=== PATIENT | male | born 1965 | race African-American/Black ===

== ENCOUNTER 2018-06-24 09:46 | Emergency (ER) | payer MEDICARE, MEDICAID ==
[2018-06-24 09:52] VITALS: BP 134/93
--- NOTE | 2018-06-24 09:56 | ER Document Report ---
HPI - HPI Pain Level: 5 Notes: Patient is a 52-year-old male who presents with chief complaint of low back pain. Patient reports the pain has been ongoing for 3 days and radiates down to the anterior portion of his right leg. Patient denies any recent injury. Patient does state that he was hanging some drywall recently and he thinks that this aggravated the area. Patient reports past medical history of hypertension , states he takes HCTZ. Patient denies any episodes of incontinence, saddle anesthesia, and denies any fevers. - REPRODUCTIVE Reproductive: DENIES: : Past Medical History - General Information source: Patient - Social History Smoking Status: Never Smoker Drug Abuse: None Lives with: Alone Family History: None - Past Medical History Cardiac Medical History: Reports: Hx Hypercholesterolemia, Hx Hypertension Pulmonary Medical History: Denies: Hx Tuberculosis Neurological Medical History: Reports: Hx Cerebrovascular Accident - Immunizations Hx Diphtheria, Pertussis, Tetanus Vaccination: Yes Vertical Provider Document - CONSTITUTIONAL Notes: PHYSICAL EXAMINATION: GENERAL: Well-appearing, well-nourished and in no acute distress. HEAD: Atraumatic, normocephalic. EYES: Pupils equal round extraocular movements intact, conjunctiva are normal. ENT: Nares patent NECK: Normal range of motion LUNGS: No respiratory distress Musculoskeletal: Normal range of motion, tenderness to palpation to the paraspinous muscles near the right lumbar area, negative straight leg raises. NEUROLOGICAL: Normal speech, normal gait. PSYCH: Normal mood, normal affect. SKIN: Warm, Dry, normal turgor, no rashes or lesions noted. - INFECTION CONTROL TRAVEL OUTSIDE OF THE [place] IN LAST 30 DAYS: No Course - Re-evaluation Re-evalutation: examination consistent with musculoskeletal strain. Patient will be discharged home in stable condition at this time. Patient instructed to return to the emergency department for any worsening of his pain, loss of bowel or bladder or numbness or tingling to either of his extremities. - Vital Signs Vital signs: Temp Pulse Resp BP Pulse Ox 98.0 F 73 18 134/93 H 99 06/24/18 09:49 06/24/18 09:49 10 09:49 06/24/18 09:49 06/24/18 09:49 Discharge - Discharge Clinical Impression: Back pain Qualifiers: Back pain location: low back pain Chronicity: acute Back pain laterality: right Sciatica presence: with sciatica Sciatica laterality: sciatica of right side Qualified Code(s): M54.41 - Lumbago with sciatica, right side Condition: Stable Disposition: HOME, SELF-CARE Additional Instructions: LOW BACK PAIN: Three out of every four people will have an episode of disabling back pain during their lifetime. Most commonly the pain is due to straining of the muscles and ligaments in the low back. Usual treatment includes: (1) Rest on a firm surface. Avoid lying on your stomach. (2) Ice pack the painful area. After a few days, gentle heat may be used intermittently to relax the area, or ice packs can be continued. (3) Medication may be needed -- muscle relaxers and antiinflammatory medicines are commonly used. (4) As the back improves, exercises are prescribed to strengthen the back and abdominal muscles. Your doctor will advise you on the proper care for your back at each stage in your recovery. You may be better in a few days -- or healing may take several weeks. If new symptoms of a "herniated disc" (radiation of pain, numbness, or tingling down the back of the leg or weakness in the leg) occur, you should be re-examined. Further testing may be necessary. PAIN MEDICATION INJECTION: You have received an injection of a pain medication. You should experience significant pain relief within 45 minutes. If this injection was a narcotic -- it will impair your judgement, slow your reaction time and make you sleepy (as well as relieve your pain). Narcotics also can cause nausea. You should not drive, work with machinery, or perform any task requiring mental alertness until all effects of the medication are gone -- six to eight hours. Do not take any alcohol, or sedatives, and do not take any other medication without checking with your physician. ICE PACKS: Apply ice packs frequently against the painful area. Many different schedules are recommended, such as "20 minutes on, 20 minutes off" or "one hour ice, two hours rest." If you need to work, you may need to go longer between ice treatments. You should plan to have the area ice packed AT LEAST one fourth of the time. The ice should be applied over the wrap, tape, or splint, or over a layer of cloth -- not directly against the skin. Some ice bags have a built-in cloth and can be put directly on the skin. WARM PACKS: After approximately two days, apply gentle heat (such as a heating pad or hot water bottle) for about 20 to 30 minutes about every two hours -- at least four times daily. Warmth and elevation will help you make a more rapid recovery , and will ease the pain considerably. Do not use HOT heat, and never apply heat for longer than 30 minutes. The continuous heat can invisibly damage skin and muscles -- even when no burn is seen on the surface. Damaged muscles can make you MORE sore. FOLLOW-UP CARE: If you have been referred to a physician for follow-up care, call the physician s office for an appointment as you were instructed or within the next two days. If you experience worsening or a significant change in your symptoms, notify the physician immediately or return to the Emergency Department at any time for re-evaluation. Please take medication as prescribed. Alternate ice and heat to the area. Follow-up with your primary care provider in the next 3-5 days for a follow-up.* Prescriptions: Ibuprofen 600 mg PO Q6H #40 tablet Lidocaine [Lidoderm 5% (700 mg) Transdermal Patch] 1 patch TP DAILY #30 adh..patch Referrals: TALHA JOHNSON MD [ACTIVE STAFF] - Follow up as needed
[2018-06-24] MEDS ORDERED: DEXAMETHASONE SOD PHOS INJ 10 MG/1 ML VIAL IM ONE (10:01)
[2018-06-24] MEDS ORDERED: KETOROLAC TROMETHAMINE 60 MG/2 ML SDV IM ONE (10:01)
[2018-06-24] MEDS ORDERED: LIDOCAINE 5% (700 MG) TRANSDERMAL ADH..PATCH TP ONE (10:02)
== END 2018-06-24 10:34 | disposition home or self-care (01) ==
LOC: ER 09:46
DX: M54.41 Lumbago with sciatica, right side (principal); E78.00 Pure hypercholesterolemia, unspecified; I10 Essential (primary) hypertension; Z86.73 Personal history of transient ischemic attack (TIA), and cerebral infarction without residual deficits
CPT/HCPCS: 99283; 96372; J1885; J1100

== ENCOUNTER 2019-03-13 13:34 | Emergency (ER) | payer MEDICARE, MEDICAID ==
--- NOTE | 2019-03-13 15:36 | ER Document Report ---
HPI - HPI Time Seen by Provider: 03/13/19 15:07 Pain Level: 3 Notes: 53-year-old male presents to the ED for evaluation of a rash that he had approximately 2 weeks ago was seen by urgent care approximately 2 weeks ago, told that he did have shingles and at the same time he also told him that he picked off a tick from his groin area. Patient states that now where the rash was, he noticed a burning sensation. Has not been followed up by his primary provider who is Nannette Ponce NP, at [facility] in [facility]. Denies any new medications foods or travel. Pt is unable to say if he was treated for Lyme disease or not. its patient states the burning pain has been becoming progressively worse in the last 2 weeks. Eating and drinking without issues. Denies fevers, chills, chest pain,palpitations, shortness of breath, dyspnea, nausea, vomiting, diarrhea, abdominal pain, hematuria,blurred vision, double vision, loss of vision, speech changes, LH, dizziness, syncope, headaches, wheezing, ST, URI, neck pain, weakness, bowel or bladder dysfunction, saddle anesthesia, numbness or tingling in bilateral upper or lower extremities equally, muscle paralysis, weakness in bilateral upper or lower extremities equally. Denies IV drug use. - REPRODUCTIVE Reproductive: DENIES: : Past Medical History - General Information source: Patient - Social History Smoking Status: Current Every Day Smoker Frequency of alcohol use: Occasional Drug Abuse: Marijuana Family History: None Patient has suicidal ideation: No Patient has homicidal ideation: No - Past Medical History Cardiac Medical History: Reports: Hx Hypercholesterolemia, Hx Hypertension Pulmonary Medical History: Denies: Hx Tuberculosis Neurological Medical History: Reports: Hx Cerebrovascular Accident Renal/ Medical History: Denies: Hx Peritoneal Dialysis - Immunizations Hx Diphtheria, Pertussis, Tetanus Vaccination: Yes Vertical Provider Document - CONSTITUTIONAL Agree With Documented VS: Yes Notes: PHYSICAL EXAMINATION: GENERAL: Well-appearing, well-nourished and in no acute distress. HEAD: Atraumatic, normocephalic. EYES: Pupils equal round and reactive to light, extraocular movements intact, sclera anicteric, conjunctiva are normal. ENT: Nares patent, oropharynx clear without exudates. Moist mucous membranes. NECK: Normal range of motion, supple without lymphadenopathy LUNGS: Breath sounds clear to auscultation bilaterally and equal. No wheezes rales or rhonchi. HEART: Regular rate and rhythm without murmurs ABDOMEN: Soft, nontender, nondistended abdomen. No guarding, no rebound. No masses appreciated. Musculoskeletal: Normal range of motion, no pitting or edema. No cyanosis. NEUROLOGICAL: Cranial nerves grossly intact. Normal speech, normal gait. Normal sensory, motor exams PSYCH: Normal mood, normal affect. SKIN: Warm, Dry, normal turgor, no rashes or lesions noted. Right lower torso with a healed's partially scalloped rash along the dermatome that does not cross midline without any erythema induration or warmth to touch, no open wounds. - INFECTION CONTROL TRAVEL OUTSIDE OF THE [place] IN LAST 30 DAYS: No Course - Re-evaluation Re-evalutation: 03/13/19 16:28 53-year-old male afebrile vitals stable no distress presents for evaluation of rash, discussed with patient since he was diagnosed with shingles, he has postherpetic neuralgia which is a common effect from having shingles. Needs to discuss with provider on starting gabapentin, will start on lidocaine patches, will check Lyme titer due to patient being concerned about being bitten by tick approximately 2 weeks ago and took the tick off from his groin area while the urgent care. Results need to be followed up with patient as well as primary care provider. Discussed with patient extensively how herpes zoster is a viral condition that does live in the dermatomes and the nerves are inflamed. Patient needs to follow-up with primary care provider within the next 24 hours to start on gabapentin due to it being a titrating dose and may need to be on for a 3 to 6 months. After performing a Medical Screening Examination, I estimate there is LOW risk for OPEN FRACTURE, COMPARTMENT SYNDROME, TENDON RUPTURE, ACUTE NEUROVASCULAR INJURY, or RETAINED FOREIGN BODY, thus I consider the discharge disposition reasonable. Also, there is no evidence or peritonitis, sepsis, or toxicity. I have reevaluated this patient multiple times and no significant life threatening changes are noted. The patient and I have discussed the diagnosis and risks, and we agree with discharging home with close follow-up with the understanding that symptoms and presentations can change. We also discussed returning to the Emergency Department immediately if new or worsening symptoms occur. We have discussed the symptoms which are most concerning (e.g., changing or worsening pain, fever, numbness, weakness, cool or painful digits) that necessitate immediate return. - Vital Signs Vital signs: Temp Pulse Resp BP Pulse Ox 98.4 F 89 16 134/97 H 97 03/13/19 13:59 03/13/19 13:59 03/13/19 13:59 03/13/19 13:59 03/13/19 13:59 Discharge - Discharge Clinical Impression: Post herpetic neuralgia, exposure to tick bite Condition: Stable Disposition: HOME, SELF-CARE Instructions: Neuralgia ([facility]) Additional Instructions: We will check a Lyme titer, will call you with results as well as your primary care provider. Please call if you do not hear any results within 2 weeks. If you test positive for Lyme we will be started on a course of doxycycline and following up with your primary care provider apply lidocaine patches to area of neuralgia, follow-up with primary care provider may possibly need to start on gabapentin. Return immediately for any new or worsening symptoms. Follow up with primary care provider, call tomorrow to make followup appointment. Prescriptions: Lidocaine/Menthol [Lidall 4%-1% Patch] 1 each TP TIDP PRN #20 adh..patch PRN Reason: Referrals: NANNETTE MACHADO NP [NO LOCAL MD] - Follow up tomorrow
[2019-03-13 15:58] VITALS: BP 134/96
[2019-03-16 07:21] LABS: LYME DISEASE IGM AB <0.80 index (0.00-0.79)
== END 2019-03-13 15:50 | disposition home or self-care (01) ==
LOC: ER 13:34
DX: B02.29 Other postherpetic nervous system involvement (principal); R21 Rash and other nonspecific skin eruption; W57.XXXA Bitten or stung by nonvenomous insect and other nonvenomous arthropods, initial encounter; F17.200 Nicotine dependence, unspecified, uncomplicated; I10 Essential (primary) hypertension
CPT/HCPCS: 36415; 86617; 86618; 99283

== ENCOUNTER 2019-04-20 12:28 | Observation (INO) | payer MEDICARE, MEDICAID ==
--- NOTE | 2019-04-20 12:40 | ER Document Report ---
Addendum entered and electronically signed by BRADLEY FRANCISCO NP 04/20/19 13:08: Course - Re-evaluation Re-evalutation: 04/20/19 13:00 Dr. Murcia advised of patient presentation and location given concern about acute CVA. - Vital Signs Vital signs: Temp Pulse Resp BP Pulse Ox 91 17 152/108 H 99 04/20/19 12:44 04/20/19 12:44 04/20/19 12:44 04/20/19 12:44 - Laboratory Result Diagrams: 04/20/19 12:59 04/20/19 12:59 Original Note: ED Medical Screen (RME) - General Chief Complaint: S/S of Possible Stroke Stated Complaint: POSSIBLE STROKE Time Seen by Provider: 04/20/19 12:34 Mode of Arrival: Ambulatory Information source: Patient Notes: Patient presents complaining of left arm numbness and difficulty talking that started at 9 AM today. Patient with left-sided facial drooping. Patient does have a previous history of CVA and does take aspirin. I have greeted and performed a rapid initial assessment of this patient. A comprehensive ED assessment and evaluation of the patient, analysis of test results and completion of the medical decision making process will be conducted by additional ED providers. TRAVEL OUTSIDE OF THE [place] IN LAST 30 DAYS: No - Related Data Allergies/Adverse Reactions: No Known Allergies Allergy (Verified 03/13/19 13:46) Past Medical History - Past Medical History Cardiac Medical History: Reports: Hx Hypercholesterolemia, Hx Hypertension Pulmonary Medical History: Denies: Hx Tuberculosis Neurological Medical History: Reports: Hx Cerebrovascular Accident Renal/ Medical History: Denies: Hx Peritoneal Dialysis - Immunizations Hx Diphtheria, Pertussis, Tetanus Vaccination: Yes Physical Exam - General General appearance: Alert Notes: Left facial droop, left upper extremity weakness, slurred speech. RN taking patient directly to CT head scan. Course - Re-evaluation Re-evalutation: 04/20/19 12:39 Dr. Garcia advised of patient's presentation to ER, patient currently in CT we will go to bed to after CT.
--- NOTE | 2019-04-20 12:56 | RADIOLOGY REPORT (SQ) ---
EXAM DESCRIPTION: CT HEAD WITHOUT COMPLETED DATE/TIME: 04/20/2019 12:43 pm REASON FOR STUDY: facial droop, LUE weak COMPARISON: 06/18/2013 TECHNIQUE: Axial images acquired through the brain without intravenous contrast. Images reviewed wi th bone, brain and subdural windows. Additional sagittal and coronal reconstructions were generated. Images stored on PACS. All CT scanners at this facility use dose modulation, iterative reconstruction, and/or weight based d osing when appropriate to reduce radiation dose to as low as reasonably achievable (ALARA). [facility]: Dose Right [facility]: CareDose [facility]: Dose Right [facility]: Teradose 4D [facility]: Smart MDCapsule RADIATION DOSE: CT Rad equipment meets quality standard of care and radiation dose reduction techniq ues were employed. CTDIvol: 53.2 mGy. DLP: 1044 mGy-cm. mGy. LIMITATIONS: None. FINDINGS: VENTRICLES: Normal size and contour. Incidental note of cavum septum pellucidum et vergae variant. CEREBRUM: No masses. No hemorrhage. No midline shift. No evidence for acute infarction. Periventri cular white matter hypodensity and multiple small bilateral lacunar infarctions of the basal ganglia, unchanged from prior CT dated 06/18/2013. CEREBELLUM: No masses. No hemorrhage. No alteration of density. No evidence for acute infarction. EXTRAAXIAL SPACES: No fluid collections. No masses. ORBITS AND GLOBE: No intra- or extraconal masses. Normal contour of globe without masses. CALVARIUM: No fracture. PARANASAL SINUSES: No fluid or mucosal thickening. SOFT TISSUES: No mass or hematoma. OTHER: No other significant finding. IMPRESSION: 1. No CT evidence of acute stroke or hemorrhage. 2. Small vessel white matter disease and multiple small bilateral lacunar infarctions of the basal g anglia, unchanged from prior CT dated 06/18/2013. EVIDENCE OF ACUTE STROKE: NO. Findings reported to the emergency department by [facility] critical findings reporting system at the time of dictation. COMMENT: Quality ID # [id number]: Final reports with documentation of one or more dose reduction techniques (e.g., Automated exposure control, adjustment of the mA and/or kV according to patient size, use of iterative reconstruction technique) TECHNICAL DOCUMENTATION: JOB ID: [id number] [employer]- All Rights Reserved Reading location - IP/workstation name: [email or web address]
--- NOTE | 2019-04-20 12:59 | RADIOLOGY REPORT (SQ) ---
EXAM DESCRIPTION: CHEST SINGLE VIEW COMPLETED DATE/TIME: 04/20/2019 12:46 pm REASON FOR STUDY: facial droop, LUE weak COMPARISON: 12/14/2012 EXAM PARAMETERS: NUMBER OF VIEWS: One view. TECHNIQUE: Single frontal radiographic view of the chest acquired. RADIATION DOSE: NA LIMITATIONS: None. FINDINGS: LUNGS AND PLEURA: No opacities, masses or pneumothorax. No pleural effusion. MEDIASTINUM AND HILAR STRUCTURES: No masses. Contour normal. HEART AND VASCULAR STRUCTURES: Heart normal in size. Normal vasculature. BONES: No acute findings. HARDWARE: None in the chest. OTHER: No other significant finding. IMPRESSION: NO ACUTE RADIOGRAPHIC FINDING IN THE CHEST. TECHNICAL DOCUMENTATION: JOB ID: [id number] [employer]- All Rights Reserved Reading location - IP/workstation name: [email or web address]
[2019-04-20 13:12] LABS: ABSOLUTE LYMPHOCYTES (AUTO) 1.5 10^3/uL (0.5-4.7); ABSOLUTE MONOCYTES (AUTO) 0.2 10^3/uL (0.1-1.4); BASOPHILS % (AUTO) 0.4 % (0-2); EOSINOPHILS % (AUTO) 1.3 % (0-6); HEMATOCRIT 43.3 % (37.9-51.0); HEMOGLOBIN 14.7 g/dL (13.5-17.0); LYMPHOCYTES % (AUTO) 54.5 % (13-45); MEAN CORPUSCULAR HEMOGLOBIN 32.6 pg (27.0-33.4); MEAN CORPUSCULAR VOLUME 96 fl (80-97); MONOCYTES % (AUTO) 6.8 % (3-13); PLATELET COUNT 193 10^3/uL (150-450); RED BLOOD COUNT 4.52 10^6/uL (4.35-5.55); RED CELL DISTRIBUTION WIDTH 13.4 % (11.5-14.0); TOTAL CELLS COUNTED % (AUTO) 100 %; WHITE BLOOD COUNT 2.8 10^3/uL (4.0-10.5)
[2019-04-20 13:13] LABS: INTERNATIONAL RATION (INR) 0.96; PARTIAL THROMBOPLASTIN TIME 27.1 SEC (23.5-35.8); PROTHROMBIN TIME 12.8 SEC (11.4-15.4)
[2019-04-20 13:34] LABS: ALBUMIN 4.4 g/dL (3.5-5.0); ALKALINE PHOSPHATASE 84 U/L (38-126); ANION GAP 8 (5-19); ASPARTATE AMINO TRANSFERASE 28 U/L (17-59); BILIRUBIN,DIRECT 0.2 mg/dL (0.0-0.4); BILIRUBIN,TOTAL 1.6 mg/dL (0.2-1.3); BLOOD UREA NITROGEN 14 mg/dL (7-20); CALCIUM 9.5 mg/dL (8.4-10.2); CARBON DIOXIDE 29 mmol/L (22-30); CHLORIDE 100 mmol/L (98-107); CREATINE KINASE 91 U/L (55-170); GLUCOSE 88 mg/dL (75-110); POTASSIUM 4.3 mmol/L (3.6-5.0); TOTAL PROTEIN 7.6 g/dL (6.3-8.2)
[2019-04-20 13:58] LABS: CREATINE KINASE MB 0.52 ng/mL (<4.55); TROPONIN I < 0.012 ng/mL
--- NOTE | 2019-04-20 14:48 | ER Document Report ---
ED Neuro Symptoms/Deficit - General Chief Complaint: S/S of Possible Stroke Stated Complaint: POSSIBLE STROKE Time Seen by Provider: 04/20/19 12:34 Mode of Arrival: Ambulatory Notes: Here for evaluation of weakness of the left face and left arm like what he had with a previous stroke. Patient had a stroke about 3 years ago affecting his left side although all of his neurologic function returned eventually. He has been well lately. Went to bed last night and got up about 11:00 to go to the bathroom. He was fine at that time, but when he awakened this morning at 9 AM, he noted the weakness of his left face and left arm. He was still able to walk and actually drove himself to the emergency department. Is able to walk. Can talk but it is difficult to understand what he saying. Denies any headache. Denies any loss of consciousness. No chest pains. No recent illness or fevers. TRAVEL OUTSIDE OF THE [place] IN LAST 30 DAYS: No - Related Data Allergies/Adverse Reactions: No Known Allergies Allergy (Verified 04/20/19 12:44) Past Medical History - General Information source: Patient - Social History Smoking Status: Current Every Day Smoker Frequency of alcohol use: Occasional Drug Abuse: Marijuana Family History: None, Reviewed & Not Pertinent Patient has suicidal ideation: No Patient has homicidal ideation: No - Past Medical History Cardiac Medical History: Reports: Hx Hypercholesterolemia, Hx Hypertension Neurological Medical History: Reports: Hx Cerebrovascular Accident - About 3 years ago affecting the left side of his body. Renal/ Medical History: Denies: Hx Peritoneal Dialysis - Immunizations Hx Diphtheria, Pertussis, Tetanus Vaccination: Yes Review of Systems - Review of Systems -: Yes ROS unobtainable due to patient's medical condition - Difficult to understand patient so detailed review of systems not possible Physical Exam - Vital signs Vitals: Pulse Resp BP Pulse Ox 91 17 152/108 H 99 04/20/19 12:44 04/20/19 12:44 04/20/19 12:44 04/20/19 12:44 Interpretation: Hypertensive - Mild Notes: PHYSICAL EXAMINATION: GENERAL: Well-appearing, in no acute distress. Speech is slurred and difficult to understand but can carry on a conversation. HEAD: Atraumatic, normocephalic. Left facial droop. EYES: Pupils equal round and reactive to light, extraocular movements intact. ENT: oropharynx clear without exudates. Moist mucous membranes. NECK: Normal range of motion, supple. No carotid bruits heard. LUNGS: Breath sounds clear and equal bilaterally. HEART: Regular rate and rhythm without murmurs. ABDOMEN: Soft, nontender. No guarding or rebound. No masses. BACK: No tenderness throughout entire back. EXTREMITIES: Normal range of motion without pain. NEUROLOGICAL: Speech is slurred and difficult to understand, but can carry on a conversation and answer questions appropriately. Is able to stand and walk. Normal sensory and reflex exams. 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 Awake, alert, and oriented x3. PSYCH: Normal mood, normal affect. SKIN: Warm, dry, no rashes. Course - Re-evaluation Re-evalutation: 04/20/19 15:02 Patient is going to be admitted to the hospitalist service. He previously has seen Dr. Marroquin, but he has a card in his position where he [facility] to [facility]. 04/20/19 15:07 Patient's last seen normal time is 11 PM last night. He does not fit into any window for thrombolytic/TPA treatment. 04/20/19 15:08 Uncertain reason for his leukopenia and lymphocytopenia. - Vital Signs Vital signs: Temp Pulse Resp BP Pulse Ox 91 20 146/101 H 96 04/20/19 12:44 04/20/19 13:46 04/20/19 13:46 04/20/19 13:46 - Laboratory Result Diagrams: 04/20/19 12:59 04/20/19 12:59 Laboratory results interpreted by me: 04/20/19 04/20/19 12:59 12:59 WBC 2.8 L Seg Neutrophils % 37.0 L Lymphocytes % 54.5 H Absolute Neutrophils 1.0 L Sodium 136.7 L Total Bilirubin 1.6 H - Diagnostic Test Radiology reviewed: Image reviewed, Reports reviewed - Patient CT scan is essentially normal. No acute findings. - EKG Interpretation by [place] EKG shows normal: Sinus rhythm Rate: Normal Rhythm: NSR Additional EKG results interpreted by id: 04/20/19 14:49 [address] is normal. No ST elevations. Discharge - Discharge Clinical Impression: Stroke, Leukopenia, Hypertension Condition: Stable Disposition: ADMITTED INPATIENT Admitting Provider: Emily Mchugh Unit Admitted: [facility]
[2019-04-20] MEDS ORDERED: DOCUSATE SODIUM 100 MG CAPSULE PO PRN (15:46)
[2019-04-20] MEDS ORDERED: TRAMADOL HCL 50 MG TABLET PO PRN (15:46)
[2019-04-20] MEDS ORDERED: ONDANSETRON HCL INJ/PF 4 MG/2 ML SDV IV PRN (15:46)
[2019-04-20] MEDS ORDERED: ACETAMINOPHEN 325 MG TABLET PO PRN (15:46)
[2019-04-20] MEDS ORDERED: MAGNESIUM HYDROXIDE SUSP 30 ML UDCUP PO PRN (15:46)
[2019-04-20] MEDS ORDERED: GLUCAGON,HUMAN RECOMB 1 MG INJ SUBCUT PRN (18:36)
[2019-04-20] MEDS ORDERED: DEXTROSE 40% GEL 15 GM TUBE PO PRN ×2 (18:36)
[2019-04-20] MEDS ORDERED: DEXTROSE 50%-WATER 25 GM/50 ML DISP.SYRIN IV PRN ×2 (18:36)
[2019-04-20] MEDS ORDERED: ASPIRIN 81 MG TABLET, CHEWABLE PO ONE (19:15)
--- NOTE | 2019-04-20 19:19 | PDOC H&P ---
History of Present Illness Admission Date/PCP: 04/20/19 15:26 JACOB BUNN MD Patient complains of: left sided weakness History of Present Illness: SYLVIA ALVAREZ is a 53 year old male with a past medical history significant for HTN, HLD, prior CVA with resultant slurred speech (per family, patient is difficult for them to understand, however, is significantly worse, and HIV on antiviral therapy who presented to the emergency department today with a com plaint of slurred speech and left-sided weakness; worsened from his baseline, present upon waking this morning. Patient's last known well was 11:30 PM. Evaluation in the emergency department revealed Elevated blood pressures of 150/137, unremarkable laboratory evaluation, benign chest x-ray, EKG de monstrating sinus rhythm, and a head CT that is negative for acute CVA but does demonstrate small vessel white matter disease with multiple small bilateral lacunar infarctions of the basal ganglia that are unchanged from 2013. He is referred to the hospitalist service for admission and management of presumed acute CVA. Past Medical History Cardiac Medical History: Reports: Hyperlipidema, Hypertension Pulmonary Medical History: Reports: None EENT Medical History: Reports: None Neurological Medical History: Reports: Ischemic CVA Endocrine Medical History: Reports: None Renal/ Medical History: Reports: None Malignancy Medical History: Reports: None GI Medical History: Reports: None Musculoskeltal Medical History: Reports: None Skin Medical History: Reports: None Psychiatric Medical History: Reports: Substance Abuse, Tobacco Dependency Denies: Depression Traumatic Medical History: Reports: None Hematology: Reports: None Infectious Medical History: Reports: HIV Past Surgical History Past Surgical History: Reports: None Social History Information Source: Patient, Relative Lives with: Family Smoking Status: Current Some Day Smoker Number of Years Smokin Last Time Smoked: 04/18/19 Frequency of Alcohol Use: Occasional Hx Recreational Drug Use: No Drugs: Marijuana Hx Prescription Drug Abuse: No - Advance Directive Resuscitation Status: Full Code Surrogate healthcare decision maker:: The patient's mother, Cesilia Alvarez, . Family History Family History: None, Reviewed & Not Pertinent Parental Family History Reviewed: Yes Children Family History Reviewed: Yes Sibling(s) Family History Reviewed.: Yes Medication/Allergy Home Medications: Atorvastatin Calcium [Lipitor 20 mg Tablet] 20 mg PO QHS 04/20/19 Darunavir Ethanolate [Prezista] 800 mg PO DAILY 04/20/19 Dolutegravir Sodium [Tivicay] 50 mg PO DAILY 04/20/19 Emtricitabine/Tenofovir [Truvada Tablet] 1 tab PO DAILY 04/20/19 Hydrochlorothiazide [Hydrodiuril 25 mg Tablet] 25 mg PO DAILY 04/20/19 Ritonavir [Norvir 100 mg Tablet] 100 mg PO DAILY 04/20/19 Allergies/Adverse Reactions: No Known Allergies Allergy (Verified 04/20/19 12:44) Review of Systems Constitutional: ABSENT: chills, fever(s), headache(s), weight gain, weight loss Eyes: ABSENT: visual disturbances Ears: ABSENT: hearing changes Cardiovascular: ABSENT: chest pain, dyspnea on exertion, edema, orthropnea, palpitations Respiratory: ABSENT: cough, hemoptysis Gastrointestinal: ABSENT: abdominal pain, constipation, diarrhea, hematemesis, hematochezia, nausea, vomiting Genitourinary: ABSENT: dysuria, hematuria Musculoskeletal: ABSENT: joint swelling Integumentary: ABSENT: rash, wounds Neurological: PRESENT: abnormal speech, focal weakness. ABSENT: abnormal gait, confusion, dizziness, syncope Psychiatric: ABSENT: anxiety, depression, homidical ideation, suicidal ideation Endocrine: ABSENT: cold intolerance, heat intolerance, polydipsia, polyuria Hematologic/Lymphatic: ABSENT: easy bleeding, easy bruising Physical Exam Vital Signs: Temp Pulse Resp BP Pulse Ox 97.8 F 61 14 134/96 H 99 04/20/19 18:05 04/20/19 18:05 04/20/19 18:05 04/20/19 18:05 04/20/19 18:05 Intake & Output 04/19/19 04/20/19 04/21/19 06:59 06:59 06:59 Intake Total 240 Balance 240 Weight 66.2 kg General appearance: PRESENT: no acute distress, cooperative, well-developed, well-nourished Head exam: PRESENT: atraumatic, normocephalic Eye exam: PRESENT: conjunctiva pink, EOMI, PERRLA. ABSENT: scleral icterus Ear exam: PRESENT: normal external ear exam Mouth exam: PRESENT: moist, tongue midline Neck exam: ABSENT: carotid bruit, JVD, lymphadenopathy, thyromegaly Respiratory exam: PRESENT: clear to auscultation alfred, symmetrical, unlabored. ABSENT: rales, rhonchi, wheezes Cardiovascular exam: PRESENT: RRR, +S1, +S2. ABSENT: diastolic murmur, rubs, systolic murmur Pulses: PRESENT: normal dorsalis pedis pul Vascular exam: PRESENT: normal capillary refill GI/Abdominal exam: PRESENT: normal bowel sounds, soft. ABSENT: distended, guarding, mass, organolmegaly, rebound, tenderness Rectal exam: PRESENT: deferred Extremities exam: PRESENT: full ROM. ABSENT: calf tenderness, clubbing, pedal edema Neurological exam: PRESENT: alert, awake, oriented to person, oriented to place, oriented to time, oriented to situation, abnormal gait, other - No facial droop present, patient does have increased slurred speech from baseline. 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 ABSENT: motor sensory deficit Psychiatric exam: PRESENT: appropriate affect, normal mood. ABSENT: homicidal ideation, suicidal ideation Skin exam: PRESENT: dry, intact, warm. ABSENT: cyanosis, rash Results Laboratory Results: 04/20/19 12:59 04/20/19 12:59 04/20/19 04/20/19 12:59 12:59 WBC 2.8 L RBC 4.52 Hgb 14.7 Hct 43.3 MCV 96 MCH 32.6 MCHC 34.0 RDW 13.4 Plt Count 193 Seg Neutrophils % 37.0 L Lymphocytes % 54.5 H Monocytes % 6.8 Eosinophils % 1.3 Basophils % 0.4 Absolute Neutrophils 1.0 L Absolute Lymphocytes 1.5 Absolute Monocytes 0.2 Absolute Eosinophils 0.0 Absolute Basophils 0.0 Sodium 136.7 L Potassium 4.3 Chloride 100 Carbon Dioxide 29 Anion Gap 8 BUN 14 Creatinine 1.03 Est GFR ( Amer) > 60 Est GFR (Non-Af Amer) > 60 Glucose 88 Calcium 9.5 Total Bilirubin 1.6 H AST 28 Alkaline Phosphatase 84 Total Protein 7.6 Albumin 4.4 04/20/19 04/20/19 12:59 12:59 Creatine Kinase 91 CK-MB (CK-2) 0.52 Troponin I < 0.012 Impressions: Chest X-Ray 04/20/19 12:34 IMPRESSION: NO ACUTE RADIOGRAPHIC FINDING IN THE CHEST. Head CT 04/20/19 12:34 IMPRESSION: 1. No CT evidence of acute stroke or hemorrhage. 2. Small vessel white matter disease and multiple small bilateral lacunar infarctions of the basal ganglia, unchanged from prior CT dated 06/18/2013. EVIDENCE OF ACUTE STROKE: NO. Findings reported to the emergency department by [facility] critical findings reporting system at the time of dictation. Assessment and Plan - Diagnosis (1) CVA (cerebral vascular accident) Qualifiers: CVA mechanism: unspecified Qualified Code(s): I63.9 - Cerebral infarction, unspecified Is this a current diagnosis for this admission?: Yes Plan: Patient presents with increased slurred speech and left-sided weakness from baseline; last known well [address] is negative for acute CVA, does show chronic bilateral lacunar infarcts. EKG demonstrates normal sinus rhythm; no history of PAF. Chest x-ray benign. Laboratory evaluation is benign. Patient is admitted to [facility] on continuous cardiac telemetry. We will obtain head MRI. Will obtain carotid Doppler. We will check A1c and lipid panel with am lab work. Start daily aspirin and statin therapy. The patient was not on daily aspirin, Plavix, or anticoagulation therapy prior to this event. PT/OT/ST consultations requested. Discharge planning consulted. Of note, the patient has significant slurred speech at baseline from prior CVA. Per family member, he is very difficult to understand, even by family members. Patient's cousin, Dima, offers his phone number for contact should we have additional information/communication needs. He can be contacted at [phone]. The patient's mother, Cesilia Alvarez, is his healthcare POA and can be contacted at [phone]. (2) HIV (human immunodeficiency virus infection) Qualifiers: HIV symptom status: asymptomatic Qualified Code(s): Z21 - Asymptomatic hu man immunodeficiency virus [HIV] infection status Is this a current diagnosis for this admission?: Yes Plan: Continue home anti-viral medication regiment; may use home medications. (3) HTN (hypertension) Is this a current diagnosis for this admission?: Yes Plan: Blood pressures 150/130 on arrival; decreased to 134/96 without intervention. Will allow for permissive hypertension. Patient takes hydrochlorothiazide only for management of hypertension. Considering consider resumption of home medication tomorrow. (4) HLD (hyperlipidemia) Is this a current diagnosis for this admission?: Yes Plan: Daily statin therapy. Check lipid panel with a.m. lab work. (5) History of CVA with residual deficit Is this a current diagnosis for this admission?: Yes Plan: Slurred speech at baseline. Does not have baseline left sided weakness. Patient was not on ASA, Plavix, or chronic anticoagulation medication prior to this event. - Time Time Spent with patient: 35 or more minutes Medications reviewed and adjusted accordingly: Yes Anticipated discharge: Home with Homehealth Within: within 48 hours
--- NOTE | 2019-04-20 20:55 | RADIOLOGY REPORT (SQ) ---
EXAM DESCRIPTION: MR BRAIN WITHOUT IV CONTRAST COMPLETED DATE/TME: 04/20/2019 00:00 CLINICAL HISTORY: 53 years, Male, aphasia, Lt side weakness COMPARISON: CT head performed the same day TECHNIQUE: Multiplanar, multisequence MR images of the brain were obtained without the use of intravenous contrast. Images stored on PACS. LIMITATIONS: None. FINDINGS: Midline structures show no suspicious finding. Diffusion weighted images reveal a punctate focus of diffusion restriction located within the right parietal lobe periventricular white matter/carvajal radiata. In addition, there is superimposed mild periventricular and patchy subcortical white matter signal alteration. Focal lacunar infarcts are noted about the left periventricular white matter/carvajal radiata as well as the right posterior parietal periventricular white matter. Intracranial arterial and venous flow voids show no suspicious abnormality. There is cavum of septum pellucidum et vergae. The ventricles and sulcal spaces are mildly enlarged. Globes and orbits show no acute abnormality. Mild opacity is evident within the right maxillary antrum, indicating a mucous retention cyst or inflammatory polyp. Remaining paranasal sinuses and mastoid air cells are clear. Susceptibility weighted images reveal no foci of susceptibility artifact. IMPRESSION: Focal acute infarct located within the right parietal lobe periventricular white matter/carvajal radiata. Superimposed mild chronic microvascular ischemic change with additional remote lacunar infarcts about the periventricular white matter. Mild generalized atrophy. copyright 2010 [employer]- All Rights Reserved
[2019-04-20] MEDS: ATORVASTATIN CALCIUM 80 MG TABLET PO SCH (21:39)
[2019-04-20] MEDS: FAMOTIDINE INJ/PF 20 MG/2 ML SDV IV SCH (21:45)
[2019-04-20] MEDS: HEPARIN SOD (PORCINE) 5,000 UNIT/ML 1 ML VIAL SUBCUT SCH (21:45)
[2019-04-21 05:16] LABS: HEMATOCRIT 42.8 % (37.9-51.0); HEMOGLOBIN 14.6 g/dL (13.5-17.0); MEAN CORPUSCULAR HEMOGLOBIN 32.7 pg (27.0-33.4); MEAN CORPUSCULAR HGB CONC 34.3 g/dL (32.0-36.0); MEAN CORPUSCULAR VOLUME 95 fl (80-97); PLATELET COUNT 194 10^3/uL (150-450); RED BLOOD COUNT 4.49 10^6/uL (4.35-5.55); RED CELL DISTRIBUTION WIDTH 13.7 % (11.5-14.0); WHITE BLOOD COUNT 3.3 10^3/uL (4.0-10.5)
[2019-04-21] MEDS: HEPARIN SOD (PORCINE) 5,000 UNIT/ML 1 ML VIAL SUBCUT SCH ×3 (05:18→21:33)
[2019-04-21 05:43] LABS: ANION GAP 9 (5-19); BLOOD UREA NITROGEN 12 mg/dL (7-20); CALCIUM 9.2 mg/dL (8.4-10.2); CARBON DIOXIDE 27 mmol/L (22-30); CHLORIDE 100 mmol/L (98-107); CHOLESTEROL 156.59 mg/dL (0-200); GLUCOSE 75 mg/dL (75-110); POTASSIUM 3.7 mmol/L (3.6-5.0); TRIGLYCERIDES 67 mg/dL (<150)
[2019-04-21 05:53] LABS: DIRECT LDL 84 mg/dL (<100)
[2019-04-21 06:02] LABS: VLDL CHOLESTEROL 13.4 mg/dL (10-31)
[2019-04-21] MEDS ORDERED: (PENDING PHARMACY ID) (Dolutegravir Sodium [Tivicay] 50 MG) PO SCH (10:00)
[2019-04-21] MEDS ORDERED: (PENDING PHARMACY ID) (Darunavir Ethanolate [Prezista] 800 MG) PO SCH (10:00)
--- NOTE | 2019-04-21 10:20 | EKG REPORT ---
SEVERITY:- NORMAL ECG - SINUS RHYTHM : Confirmed by: Nika Everett 21-Apr-2019 10:19:20
[2019-04-21] MEDS: FAMOTIDINE INJ/PF 20 MG/2 ML SDV IV SCH ×2 (10:55→21:33)
[2019-04-21] MEDS: HYDROCHLOROTHIAZIDE 25 MG TABLET PO SCH (10:55)
[2019-04-21] MEDS: RITONAVIR 100 MG TABLET PO SCH (10:56)
[2019-04-21] MEDS: EMTRICITABINE/TENOFOVIR 200-300 MG TABLET PO SCH (10:56)
[2019-04-21] MEDS: ASPIRIN 81 MG TABLET, ENT COATED PO SCH (10:56)
[2019-04-21 15:52] LABS: APPEARANCE,URINE CLEAR; BILIRUBIN,URINE NEGATIVE (NEGATIVE); COLOR,URINE YELLOW; GLUCOSE, URINE NEGATIVE (NEGATIVE); KETONES,URINE TRACE mg/dL (NEGATIVE); LEUKOCYTE ESTERASE,URINE NEGATIVE (NEGATIVE); NITRITE,URINE NEGATIVE (NEGATIVE); PROTEIN,URINE NEGATIVE (NEGATIVE); URINE SPECIFIC GRAVITY 1.014
--- NOTE | 2019-04-21 16:12 | Progress Note Acknowledgement ---
Progress Note Acknowledgement Progess Note Acknowledgement: I, the undersigned member of the medical staff with appropriate privileges and with supervisory authority over Emily Mchugh, a [facility] practice allied health professional, acknowledge that I have reviewed the progress notes entered on this patient, and in my professional judgment believe that the assessment made and/or any care evidenced was appropriate
--- NOTE | 2019-04-21 16:20 | PDOC PROGRESS REPORT ---
Subjective Progress Note for:: 04/21/19 Subjective:: SYLVIA ALVAREZ is a 53 year old male with a past medical history significant for HTN, HLD, prior CVA with resultant slurred speech (per family worse than baseline), and HIV on antiviral therapy who was admitted 04/20/19 for acute CVA. Patient was seen on afternoon rounds with his family members present. He was found resting in bed comfortably on room air. He reports resolution of his left-sided weakness; ambulated 300 feet independently with his physical therapy today. Has passed his swallow screen but has not yet had solid food. Continues to have significantly worsened speech from his baseline. Despite difficulty with speech, he does appear to be alert and oriented x4 and at his baseline mentation. He denies fever, chills, chest pain, palpitations, dyspnea, orthopnea, cough, abdominal pain, nausea vomiting or diarrhea. They have no questions or concerns at this time. Nursing reports decreased oral intake and tachycardia when standing; have requested orthostatic vital signs. Reason For Visit: CVA Physical Exam Vital Signs: Temp Pulse Resp BP Pulse Ox 98.0 F 85 17 130/86 H 100 04/21/19 11:45 04/21/19 14:00 04/21/19 12:00 04/21/19 12:00 04/21/19 12:00 Intake & Output 04/20/19 04/21/19 04/22/19 06:59 06:59 06:59 Intake Total 240 0 Output Total 275 Balance -35 0 Weight 65.6 kg General appearance: PRESENT: no acute distress, cooperative, thin, well- developed, well-nourished Head exam: PRESENT: atraumatic, normocephalic Eye exam: PRESENT: conjunctiva pink, EOMI, PERRLA. ABSENT: scleral icterus Ear exam: PRESENT: normal external ear exam Mouth exam: PRESENT: moist, tongue midline Teeth exam: PRESENT: poor dentation Neck exam: ABSENT: carotid bruit, JVD, lymphadenopathy, thyromegaly Respiratory exam: PRESENT: clear to auscultation alfred, symmetrical, unlabored. ABSENT: rales, rhonchi, wheezes Cardiovascular exam: PRESENT: RRR, +S1, +S2. ABSENT: diastolic murmur, rubs, sy stolic murmur Pulses: PRESENT: normal dorsalis pedis pul Vascular exam: PRESENT: normal capillary refill GI/Abdominal exam: PRESENT: normal bowel sounds, soft. ABSENT: distended, guarding, mass, organolmegaly, rebound, tenderness Rectal exam: PRESENT: deferred Extremities exam: PRESENT: full ROM. ABSENT: calf tenderness, clubbing, pedal edema Neurological exam: PRESENT: alert, awake, oriented to person, oriented to place, oriented to time, oriented to situation, CN II-XII grossly intact, other - No facial droop or focal deficits. Continues to have increased slurred speech from baseline. ABSENT: motor sensory deficit Psychiatric exam: PRESENT: appropriate affect, normal mood. ABSENT: homicidal ideation, suicidal ideation Skin exam: PRESENT: dry, intact, warm. ABSENT: cyanosis, rash Results Laboratory Results: 04/21/19 04:44 04/21/19 04:44 04/21/19 04/21/19 04/21/19 04:44 04:44 15:33 WBC 3.3 L RBC 4.49 Hgb 14.6 Hct 42.8 MCV 95 MCH 32.7 MCHC 34.3 RDW 13.7 Plt Count 194 Sodium 135.5 L Potassium 3.7 Chloride 100 Carbon Dioxide 27 Anion Gap 9 BUN 12 Creatinine 1.02 Est GFR ( Amer) > 60 Est GFR (Non-Af Amer) > 60 Glucose 75 Calcium 9.2 Triglycerides 67 Cholesterol 156.59 LDL Cholesterol Direct 84 VLDL Cholesterol 13.4 HDL Cholesterol 52 Urine Color YELLOW Urine Appearance CLEAR Urine pH 7.0 Ur Specific Denhoff 1.014 Urine Protein NEGATIVE Urine Glucose (UA) NEGATIVE Urine Ketones TRACE H Urine Blood NEGATIVE Urine Nitrite NEGATIVE Ur Leukocyte Esterase NEGATIVE Urine WBC (Auto) 0 Urine RBC (Auto) 1 04/20/19 04/20/19 12:59 12:59 Creatine Kinase 91 CK-MB (CK-2) 0.52 Troponin I < 0.012 Impressions: Head MRI 04/20/19 00:00 IMPRESSION: Focal acute infarct located within the right parietal lobe periventricular white matter/carvajal radiata. Superimposed mild chronic microvascular ischemic change with additional remote lacunar infarcts about the periventricular white matter. Mild generalized atrophy. copyright 2010 [employer]- All Rights Reserved Chest X-Ray 04/20/19 12:34 IMPRESSION: NO ACUTE RADIOGRAPHIC FINDING IN THE CHEST. Head CT 04/20/19 12:34 IMPRESSION: 1. No CT evidence of acute stroke or hemorrhage. 2. Small vessel white matter disease and multiple small bilateral lacunar infarctions of the basal ganglia, unchanged from prior CT dated 06/18/2013. EVIDENCE OF ACUTE STROKE: NO. Findings reported to the emergency department by C[facility] critical findings repor tin system at the time of dictation. Assessment and Plan - Diagnosis (1) CVA (cerebral vascular accident) Qualifiers: CVA mechanism: unspecified Qualified Code(s): I63.9 - Cerebral infarction, unspecified Is this a current diagnosis for this admission?: Yes Plan: Patient presents with increased slurred speech and left-sided weakness from baseline; last known well 1130 last night. Head MRI focal acute infarct located within the right parietal lobe periventricular white matter/carvajal with superimposed mild chronic microvascular ischemic changes with additional remote lacunar infarcts about the per iventricular white matter and mild generalized atrophy. Head CT is negative for acute CVA, does show chronic bilateral lacunar infarcts. Carotid Doppler is pending. EKG demonstrates normal sinus rhythm; no history of PAF. Chest x-ray benign. Laboratory evaluation is benign. Hemoglobin A1c and lipid panel are acceptable. Patient is admitted to [facility] on continuous cardiac telemetry. Continue daily aspirin and statin therapy. Today the patient reports that he was taking daily aspirin 81 mg therapy; therefore, will start Plavix in addition. PT/OT/ST consultations requested. Discharge planning consulted. Of note, the patient has significant slurred speech at baseline from prior CVA. Per family member, he is very difficult to understand, even by family members. Patient's cousin, Dima, offers his phone number for contact should we have additional information/communication needs. He can be contacted at [phone]. The patient's mother, Cesilia Alvarez, is his healthcare POA and can be contacted at [phone]. (2) HIV (human immunodeficiency virus infection) Qualifiers: HIV symptom status: asymptomatic Qualified Code(s): Z21 - Asymptomatic human immunodeficiency virus [HIV] infection status Is this a current diagnosis for this admission?: Yes Plan: Continue home anti-viral medication regiment; may use home medications. (3) HTN (hypertension) Is this a current diagnosis for this admission?: Yes Plan: Acceptable blood pressures. Have resumed home dose hydrochlorothiazide. Cardiac diet. (4) HLD (hyperlipidemia) Is this a current diagnosis for this admission?: Yes Plan: Daily statin therapy. Cardiac diet. (5) History of CVA with residual deficit Is this a current diagnosis for this admission?: Yes Plan: Slurred speech at baseline. Does not have baseline left sided weakness. - Time Time Spent with patient: 15-24 minutes Medications reviewed and adjusted accordingly: Yes Anticipated discharge: Home Within: within 24 hours
--- NOTE | 2019-04-21 16:40 | RADIOLOGY REPORT (SQ) ---
EXAM DESCRIPTION: US CAROTID DOPPLER BILATERAL COMPLETED DATE/TME: 04/20/2019 15:51 CLINICAL HISTORY: 53 years, Male, aphasia, Lt side weakness COMPARISON: None. TECHNIQUE: Axial 2-D grayscale images of the neck were acquired. Duplex/Doppler was utilized. LIMITATIONS: None. FINDINGS: Duplex examination of the extracranial carotid artery systems was performed bilaterally. Areas of mild calcified and noncalcified atheromatous plaquing bilaterally. Vertebral artery flows are antegrade. Peak systolic (PS) and end diastolic (ED) velocities are as follows: RIGHT SIDE Proximal CCA: PS 51 cm/s. ED 11 cm/s. Distal CCA: PS 44 cm/s. ED 15 cm/s. Proximal ICA: PS 53 cm/s. ED 12 cm/s. Distal ICA: PS 53 cm/s. ED 20 cm/s. ECA: 76 cm/s. ICA/CCA PS ratio: 1.2 Right vertebral artery demonstrates antegrade flow, with peak systolic velocity of 28 cm/s LEFT SIDE Proximal CCA: PS 64 cm/s. ED 18 cm/s. Distal CCA: PS 55 cm/s. ED 16 cm/s. Proximal ICA: PS 49 cm/s. ED 14 cm/s. Distal ICA: PS 59 cm/s. ED 20 cm/s. ECA: 68 cm/s. ICA/CCA PS ratio: 1.1 Antegrade flow is documented within the left vertebral artery with peak systolic velocity of 40 cm/s. IMPRESSION: No evidence for hemodynamically significant stenosis in the extracranial carotid arteries bilaterally. copyright 2010 [employer]- All Rights Reserved
[2019-04-21] MEDS ORDERED: NORMAL SALINE 1000 ML 1,000 ML IV ONE (20:30)
[2019-04-21] MEDS: ATORVASTATIN CALCIUM 80 MG TABLET PO SCH (21:33)
[2019-04-22] MEDS: HEPARIN SOD (PORCINE) 5,000 UNIT/ML 1 ML VIAL SUBCUT SCH (06:05)
[2019-04-22] MEDS: RITONAVIR 100 MG TABLET PO SCH (09:14)
[2019-04-22] MEDS: HYDROCHLOROTHIAZIDE 25 MG TABLET PO SCH (09:14)
[2019-04-22] MEDS: EMTRICITABINE/TENOFOVIR 200-300 MG TABLET PO SCH (09:14)
[2019-04-22] MEDS: ASPIRIN 81 MG TABLET, ENT COATED PO SCH (09:14)
[2019-04-22] MEDS: FAMOTIDINE INJ/PF 20 MG/2 ML SDV IV SCH (09:15)
[2019-04-22 09:19] VITALS: BP 114/76
[2019-04-22] MEDS ORDERED: CLOPIDOGREL BISULFATE 75 MG TABLET PO SCH (10:00)
--- NOTE | 2019-04-24 17:49 | PDOC DISCHARGE SUMMARY ---
General - Admit/Disc Date/PCP Admission Date/Primary Care Provider: 04/20/19 15:26 JACOB BUNN MD Discharge Date: 04/22/19 - Discharge Diagnosis (1) CVA (cerebral vascular accident) Is this a current diagnosis for this admission?: Yes Summary: Patient presents with increased slurred speech and left-sided weakness from baseline; left side weakness has resolved. Patient continues to have slurred speech, slightly improved from time of admission but not yet at baseline. Head MRI focal acute infarct located within the right parietal lobe periventricular white matter/carvajal with superimposed mild chronic microvascular ischemic changes with additional remote lacunar infarcts about the periventricular white matter and mild generalized atrophy. Head CT is negative for acute CVA, does show chronic bilateral lacunar infarcts. Carotid Doppler is negative for hemodynamically significant stenosis. EKG demonstrates normal sinus rhythm; no history of PAF. Chest x-ray benign. Laboratory evaluation is benign. Hemoglobin A1c and lipid panel are acceptable. Patient was admitted to [facility] on continuous cardiac telemetry. He was continued on daily aspirin and statin therapy. As the patient reports that he was taking daily aspirin 81 mg therapy; he was started on Plavix for dual therapy. PT/OT/ST consultations obtained and signed off; no further services required. Patient is discharged home in stable condition on aspirin, plavix, and statin therapy. He is advised to follow up with a PCP within 1 week and to return to the emergency department as needed for concerning symptoms. (2) HIV (human immunodeficiency virus infection) Is this a current diagnosis for this admission?: Yes Summary: Continue home anti-viral medication regimen (3) HTN (hypertension) Is this a current diagnosis for this admission?: Yes Summary: Acceptable blood pressures. Continue home dose hydrochlorothiazide. (4) HLD (hyperlipidemia) Is this a current diagnosis for this admission?: Yes Summary: Lipid panel is acceptable. Continue home dose statin. (5) History of CVA with residual deficit Is this a current diagnosis for this admission?: Yes Summary: Slurred speech at baseline; per family, speech remains worse than is normal. All other new symptoms have resolved. - Additional Information Resuscitation Status: Full Code Discharge Diet: Cardiac Discharge Activity: Activity As Tolerated, Balance Activity w/Rest Prescriptions: Aspirin [Ecotrin 81 mg EC Tablet] 81 mg PO DAILY #90 tabec Clopidogrel Bisulfate [Plavix 75 mg Tablet] 75 mg PO DAILY #30 tablet Home Medications: Atorvastatin Calcium [Lipitor 20 mg Tablet] 20 mg PO QHS 04/20/19 Darunavir Ethanolate [Prezista] 800 mg PO DAILY 04/20/19 Dolutegravir Sodium [Tivicay] 50 mg PO DAILY 04/20/19 Emtricitabine/Tenofovir [Truvada Tablet] 1 tab PO DAILY 04/20/19 Hydrochlorothiazide [Hydrodiuril 25 mg Tablet] 25 mg PO DAILY 04/20/19 Ritonavir [Norvir 100 mg Tablet] 100 mg PO DAILY 04/20/19 Acetaminophen [Tylenol 325 mg Tablet] 650 mg PO Q4HP PRN tablet 04/22/19 Aspirin [Ecotrin 81 mg EC Tablet] 81 mg PO DAILY #90 tabec 04/22/19 Clopidogrel Bisulfate [Plavix 75 mg Tablet] 75 mg PO DAILY #30 tablet 04/22/19 Docusate Sodium [Colace 100 mg Capsule] 100 mg PO BIDP PRN capsule 04/22/19 History of Present Illness History of Present Illness: SYLVIA ALVAREZ is a 53 year old male with a past medical history significant for HTN, HLD, prior CVA with resultant slurred speech (per family, patient is difficult for them to understand, however, is significantly worse, and HIV on antiviral therapy who presented to the emergency department today with a complaint of slurred speech and left-sided weakness; worsened from his baseline, present upon waking this morning. Patient's last known well was 11:30 PM. Evaluation in the emergency department revealed Elevated blood pressures of 150/137, unremarkable laboratory evaluation, benign chest x-ray, EKG demonstrating sinus rhythm, and a head CT that is negative for acute CVA but does demonstrate small vessel white matter disease with multiple small bilateral lacunar infarctions of the basal ganglia that are unchanged from 2013. He is referred to the hospitalist service for admission and management of presumed acute CVA. Physical Exam Vital Signs: Temp Pulse Resp BP Pulse Ox 98.6 F 75 16 114/76 99 04/22/19 12:36 04/22/19 12:36 04/22/19 12:36 04/22/19 12:00 04/22/19 12:36 General appearance: PRESENT: no acute distress, cooperative, thin, well- developed, well-nourished Head exam: PRESENT: atraumatic, normocephalic Eye exam: PRESENT: conjunctiva pink, EOMI, PERRLA. ABSENT: scleral icterus Ear exam: PRESENT: normal external ear exam Mouth exam: PRESENT: moist, tongue midline Neck exam: ABSENT: carotid bruit, JVD, lymphadenopathy, thyromegaly Respiratory exam: PRESENT: clear to auscultation alfred. ABSENT: rales, rhonchi, wheezes Cardiovascular exam: PRESENT: RRR. ABSENT: diastolic murmur, rubs, systolic m urmur Pulses: PRESENT: normal dorsalis pedis pul Vascular exam: PRESENT: normal capillary refill GI/Abdominal exam: PRESENT: normal bowel sounds, soft. ABSENT: distended, guarding, mass, organolmegaly, rebound, tenderness Rectal exam: PRESENT: deferred Extremities exam: PRESENT: full ROM. ABSENT: calf tenderness, clubbing, pedal edema Neurological exam: PRESENT: alert, awake, oriented to person, oriented to place, oriented to time, oriented to situation, CN II-XII grossly intact, other - Slurred speach, difficult to understand, not yet at baseline per family. Left side weakness has resolved.. ABSENT: motor sensory deficit Psychiatric exam: PRESENT: appropriate affect, normal mood. ABSENT: homicidal ideation, suicidal ideation Skin exam: PRESENT: dry, intact, warm. ABSENT: cyanosis, rash Results Laboratory Results: 04/21/19 04:44 04/21/19 04:44 04/20/19 04/20/19 12:59 12:59 Creatine Kinase 91 CK-MB (CK-2) 0.52 Troponin I < 0.012 Impressions: Head MRI 04/20/19 00:00 IMPRESSION: Focal acute infarct located within the right parietal lobe periventricular white matter/carvajal radiata. Superimposed mild chronic microvascular ischemic change with additional remote lacunar infarcts about the periventricular white matter. Mild generalized atrophy. copyright 2011 [employer] ([employer])- All Rights Reserved Chest X-Ray 04/20/19 12:34 IMPRESSION: NO ACUTE RADIOGRAPHIC FINDING IN THE CHEST. Head CT 04/20/19 12:34 IMPRESSION: 1. No CT evidence of acute stroke or hemorrhage. 2. Small vessel white matter disease and multiple small bilateral lacunar infarctions of the basal ganglia, unchanged from prior CT dated 06/18/2013. EVIDENCE OF ACUTE STROKE: NO. Findings reported to the emergency department by [facility] critical findings reporting system at the time of dictation. Carotid Doppler Study 04/20/19 15:51 IMPRESSION: No evidence for hemodynamically significant stenosis in the extracranial carotid arteries bilaterally. copyright 2010 [employer] ([employer])- All Rights Reserved Qualifiers - * PATIENT BEING DISCHARGED WITH ANY OF THE FOLLOWING DIAGNOSIS: Stroke Stroke Pt being discharged on Anti-thrombolytic therapy?: Yes Stroke Pt being discharged on Anti-coagulation therapy?: No Reason(s) for not prescribing Anti-coagulation therapy:: Not indicated Stroke Pt being discharged on Statins?: Yes Acute Heart Failure - Is this a Heart Failure Patient?: No Plan Discharge Plan: Follow up with primary care provider within 1 week. Take your medications as prescribed. Return to the emergency department as needed for concerning symptoms. Time Spent: Greater than 30 Minutes
== END 2019-04-22 13:07 | disposition home or self-care (01) ==
LOC: ER 12:28 → INTOOBSV 15:26 → EH 15:26 → 3N 17:50
PROVIDERS: ADMIT Internal Medicine; ATTEND Internal Medicine
DX: I63.89 Other cerebral infarction (principal); R47.81 Slurred speech; G81.94 Hemiplegia, unspecified affecting left nondominant side; I69.328 Other speech and language deficits following cerebral infarction; I69.354 Hemiplegia and hemiparesis following cerebral infarction affecting left non-dominant side; I10 Essential (primary) hypertension; D72.810 Lymphocytopenia; F12.10 Cannabis abuse, uncomplicated; E78.5 Hyperlipidemia, unspecified; F17.200 Nicotine dependence, unspecified, uncomplicated; B20 Human immunodeficiency virus [HIV] disease; Z79.899 Other long term (current) drug therapy
CPT/HCPCS: 93005; 99285; 36415 ×2; 82553; 82962 ×2; 82550; 85025; 85027; 85610; 85730; 80048; 80053; 81001; 84484; 83036; 80061; 93880; 70551; 71045; 70450; 93010; 97116; 97161; G0378 ×4; A9270 ×9; J1644 ×3; J3490 ×3; J7030; S0028 ×3

== ENCOUNTER → 2020-03-04 | Outpatient (CLI) | payer MEDICARE, MEDICAID ==
--- NOTE | 2020-03-04 10:52 | RADIOLOGY REPORT (SQ) ---
EXAM DESCRIPTION: CT CHEST WITH IMAGES COMPLETED DATE/TIME: 03/04/2020 8:12 am REASON FOR STUDY: PROSTATE CA C61 MALIGNANT NEOPLASM OF PROSTATE COMPARISON: None. TECHNIQUE: CT scan of the chest performed using helical scanning technique with dynamic intravenous contrast injection. Images reviewed with lung, soft tissue and bone windows. Reconstructed coronal and sagittal MPR and MIP images reviewed. All images stored on PACS. All CT scanners at this facility use dose modulation, iterative reconstruction, and/or weight based d osing when appropriate to reduce radiation dose to as low as reasonably achievable (ALARA). [facility]: Dose Right [facility]: CareDose [facility]: Dose Right [facility]: Teradose 4D [facility]: [employer] RENAL FUNCTION: GFR > 60. RADIATION DOSE: CT Rad equipment meets quality standard of care and radiation dose reduction techniq ues were employed. CTDIvol: 4.5 - 10.4 mGy. DLP: 849 mGy-cm. . LIMITATIONS: None. FINDINGS: LUNGS AND PLEURA: No opacities, nodules, masses. No pneumothorax. No effusions. HILAR AND MEDIASTINAL STRUCTURES: No identified masses or abnormal nodes. HEART AND VASCULAR STRUCTURES: No aneurysm or dissection. No central pulmonary emboli. No pericardi al effusion. HARDWARE: None in the chest. UPPER ABDOMEN: See separate report of the CT of the abdomen. THYROID AND OTHER SOFT TISSUES: No masses. No adenopathy. BONES: No significant finding. OTHER: No other significant finding. IMPRESSION: No evidence of metastatic disease. TECHNICAL DOCUMENTATION: JOB ID: [id number] Quality ID # [id number]: Final reports with documentation of one or more dose reduction techniques (e.g., Au tomated exposure control, adjustment of the mA and/or kV according to patient size, use of iterative reconstruction technique) 2010 [employer]- All Rights Reserved Reading location - IP/workstation name: [email or web address]
--- NOTE | 2020-03-04 11:04 | RADIOLOGY REPORT (SQ) ---
EXAM DESCRIPTION: CT ABD/PELVIS WITH IV ONLY IMAGES COMPLETED DATE/TIME: 03/04/2020 8:12 am REASON FOR STUDY: PROSTATE CA C61 MALIGNANT NEOPLASM OF PROSTATE COMPARISON: None. TECHNIQUE: CT scan of the abdomen and pelvis performed using helical scanning technique with dynamic intravenous contrast injection. No oral contrast. Images reviewed with lung, soft tissue, and bone windows. Reconstructed coronal and sagittal MPR images reviewed. Delayed images for evaluation of the urinary system also acquired. All images stored on PACS. All CT scanners at this facility use dose modulation, iterative reconstruction, and/or weight based d osing when appropriate to reduce radiation dose to as low as reasonably achievable (ALARA). [facility]: Dose Right [facility]: CareDose [facility]: Dose Right [facility]: Teradose 4D [facility]: [employer] CONTRAST TYPE AND DOSE: contrast/concentration: Isovue 350.00 mmol/ml; Total Contrast Delivered: 78. 0 ml; Total Saline Delivered: 67.0 ml RENAL FUNCTION: GFR > 60. RADIATION DOSE: . LIMITATIONS: None. FINDINGS: LOWER CHEST: See separate report of the CT of the chest. LIVER: Normal size. Small subdiaphragmatic hemangioma. No dilated ducts. SPLEEN: Normal size. No focal lesions. PANCREAS: No masses. No significant calcifications. No adjacent inflammation or peripancreatic fluid collections. Pancreatic duct not dilated. GALLBLADDER: No identified stones by CT criteria. No inflammatory changes to suggest cholecystitis. ADRENAL GLANDS: No significant masses or asymmetry. RIGHT KIDNEY AND URETER: No solid masses. No significant calcifications. No hydronephrosis or hyd roureter. LEFT KIDNEY AND URETER: No solid masses. No significant calcifications. No hydronephrosis or hydr oureter. AORTA AND VESSELS: No aneurysm. No dissection. Renal arteries, SMA, celiac without stenosis. RETROPERITONEUM: No retroperitoneal adenopathy, hemorrhage or masses. BOWEL AND PERITONEAL CAVITY: No masses or inflammatory changes. No free fluid or peritoneal masses. APPENDIX: Normal. PELVIS: No mass. No free fluid. Normal bladder. ABDOMINAL WALL: No masses. No hernias. BONES: No significant or acute findings. OTHER: No other significant finding. IMPRESSION: No evidence of metastatic disease. TECHNICAL DOCUMENTATION: JOB ID: [id number] Quality ID # [id number]: Final reports with documentation of one or more dose reduction techniques (e.g., Au tomated exposure control, adjustment of the mA and/or kV according to patient size, use of iterative reconstruction technique) 2010 [employer]- All Rights Reserved Reading location - IP/workstation name: [email or web address]
--- NOTE | 2020-03-04 12:49 | RADIOLOGY REPORT (SQ) ---
EXAM DESCRIPTION: NM WHOLE BODY BONE SCAN IMAGES COMPLETED DATE/TIME: 03/04/2020 11:55 am REASON FOR STUDY: PROSTATE CA C61 MALIGNANT NEOPLASM OF PROSTATE COMPARISON: CT chest and abdomen 03/04/2020 RADIONUCLIDE AND DOSE: 20 millicuries Tc99m HDP. The route of agent administration: Intravenous. ADDITIONAL DRUGS AND DOSES: None. TECHNIQUE: Routine delayed images at 3 hours post radionuclide injection acquired of the bony skelet on including anterior and posterior whole-body projections and additional focused images as needed. LIMITATIONS: None. FINDINGS: BONES: There is a single focus of increased uptake on the left at about L4. KIDNEYS: Symmetric excretion without obstruction. OTHER: No other significant finding. IMPRESSION: There is a single focus of increased uptake on the left at about L4. This is likely deg enerative. However, an isolated metastasis cannot be excluded entirely. COMMENT: Quality measure 147: Current bone scan is compared with any available plain radiographs, p rior bone scans, and CT/MRI. TECHNICAL DOCUMENTATION: JOB ID: [id number] 2010 [employer]- All Rights Reserved Reading location - IP/workstation name: [email or web address]
== END ==
LOC: RAD 07:44
PROVIDERS: ATTEND Urology
DX: C61 Malignant neoplasm of prostate (principal)
CPT/HCPCS: 82565; 78306; 71260; 74177; A9503; Q9969